=== PATIENT | male | born 1960 | race Hispanic/Latino ===

== ENCOUNTER 2019-03-16 16:03 | Emergency (ER) | payer OTHER ==
[2019-03-16 16:43] LABS: Absolute Lymphocytes (CBC) 1.7 K/uL (0.7-4.9); Basophils % 0.5 % (0-1.3); Hematocrit 33.6 % (39.6-49.0); Lymphocytes % 29.4 % (15.3-44.8); Protime INR 1.05; RBC Red Blood Cell Count 3.85 M/uL (4.33-5.43)
[2019-03-16 17:06] LABS: ALT/SGPT 26 U/L (12-78); AST/SGOT 19 U/L (15-37); Alkaline Phosphatase 48 U/L (45-117); BUN Blood Urea Nitrogen 14 mg/dL (7-18); Bicarbonate 26 mmol/L (21-32); Bilirubin Direct < 0.1 mg/dL (0-0.2); Bilirubin Total 0.2 mg/dL (0.2-1.0); CKMB Creatine Kinase MB 3.3 ng/mL (0.3-3.6); Creatine Phosphokinase 146 U/L (39-308); Glucose Level 79 mg/dL (74-106); Magnesium 2.1 mg/dL (1.8-2.4); NT PRO-BNP 144 pg/mL (<125); Potassium 3.6 mmol/L (3.5-5.1); Protein, Total 6.2 g/dL (6.4-8.2); Sodium Level 142 mmol/L (136-145); Troponin (Emerg Dept Use Only) < 0.02 ng/mL (0.0-0.045)
[2019-03-16] MEDS ORDERED: NA CHLORIDE 0.9% 1,000 ML ONE (17:06)
--- NOTE | 2019-03-16 17:12 | RAD REPORT ---
EXAM DESCRIPTION: RAD - Chest Single View - 03/16/2019 5:01 pm CLINICAL HISTORY: Cough, patient found down and unresponsive COMPARISON: August 2015 TECHNIQUE: AP portable chest image was obtained 1658 hours . FINDINGS: Lung volumes are normal. Patchy minimal opacification in the lateral right base. This coul d be atelectasis or very early pneumonia. Interstitial pattern otherwise unremarkable and similar to comparison. Trachea is midline. Heart and vasculature are normal. No measurable pleural effusion and no pneumothorax. No acute bony abnormality seen. No acute aortic findings suspected. IMPRESSION: Minimal patchy opacification lateral right base could be very early pneumonia.
--- NOTE | 2019-03-16 17:22 | ER ---
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 Transition of care: patient was not received from another setting of care. Transition of care: patient was not received from another setting of care. Onset of symptoms was March 16, 2019. Risk Assessment: Do you want to hurt yourself or someone else? Patient reports no desire to harm self or others. Initial Sepsis Screen: Does the patient meet any 2 criteria? No. Patient's initial sepsis screen is negative. Does the patient have a suspected source of infection? No. Patient's initial sepsis screen is negative. Care prior to arrival: Medication(s) given: Normal saline infusion, approx 600 mL IV initiated. 18 GA, in the right antecubital area, Glucose check: 65. 16:09 Method Of Arrival: EMS: [facility] 16:09 Acuity: RAY 3 ph Triage Assessment: 16:21 General: Appears in no apparent distress. comfortable, Behavior is calm, cooperative, ph appropriate for age, Denies fever, feeling ill. Pain: Complains of pain in left foot. Neuro: Level of Consciousness is awake, alert, obeys commands, Oriented to person, place, time, situation, Speech is normal, Facial symmetry appears normal, Reports a syncopal episode Denies blurred vision. Cardiovascular: Reports syncope, Denies chest pain, shortness of breath, Capillary refill < 3 seconds in bilateral fingers Patient's skin is warm and dry. Respiratory: Airway is patent Respiratory effort is even, unlabored, Respiratory pattern is regular, symmetrical. GI: Patient currently denies diarrhea, nausea, vomiting. Derm: Skin is intact, is healthy with good turgor, Skin is pink, warm \T\ dry. Musculoskeletal: Circulation, motion, and sensation intact. Range of motion: intact in all extremities. Historical: - Allergies: 16:17 No Known Allergies; ph - Home Meds: 16:17 None [Active]; ph - PMHx: 16:17 None; ph - PSHx: 16:17 L foot; L wrist; pelvis; ph - Immunization history:: Adult Immunizations unknown. - Social history:: Smoking status: Patient uses tobacco products, smokes one-half pack cigarettes per day, Patient/guardian denies using alcohol, street drugs. - Ebola Screening: : No symptoms or risks identified at this time. Screenin:20 Abuse screen: Denies threats or abuse. Denies injuries from another. Nutritional ph screening: No deficits noted. Tuberculosis screening: No symptoms or risk factors identified. Fall Risk Fall in past 12 months (25 points). No secondary diagnosis (0 pts). IV access (20 points). Ambulatory Aid- None/Bed Rest/Nurse Assist (0 pts). Gait- Weak (10 pts.). Mental Status- Oriented to own ability (0 pts). Total Farfan Fall Scale indicates High Risk Score (45 or more points). Fall prevention measures have been instituted. Side Rails Up X 2 Placed Close to Nursing Station Frequent Obs/Assessments Occuring Family Present and informed to notify staff if the need to leave the bedside As available patient and family educated on Fall Prevention Program and Strategies. Assessment: 16:27 General: see triage note for full assessment. ph 17:00 Reassessment: Patient appears in no apparent distress at this time. Patient and/or ph family updated on plan of care and expected duration. Pain level reassessed. Patient is alert, oriented x 3, equal unlabored respirations, skin warm/dry/pink. 18:00 Reassessment: Patient appears in no apparent distress at this time. Patient and/or ph family updated on plan of care and expected duration. Pain level reassessed. Patient is alert, oriented x 3, equal unlabored respirations, skin warm/dry/pink. D/C pending completion of IV fluids. 18:21 Reassessment: Patient appears in no apparent distress at this time. Patient and/or ph family updated on plan of care and expected duration. Pain level reassessed. Patient is alert, oriented x 3, equal unlabored respirations, skin warm/dry/pink. D/C pending completion of IV fluids Patient states feeling better. Patient states symptoms have improved. Vital Signs: 16:14 BP 136 / 69; Pulse 75; Resp 18; Temp 98.2; Pulse Ox 95% on R/A; Weight 86.18 kg; Height ph 5 ft. 11 in. (180.34 cm); 17:30 BP 124 / 70; Pulse 71; Resp 18; Pulse Ox 96% on R/A; ph 18:30 BP 127 / 78; Pulse 72; Resp 16; Temp 97.8; Pulse Ox 95% on R/A; ph 16:14 Body Mass Index 26.50 (86.18 kg, 180.34 cm) ph ED Course: 16:06 Brandt Han MD is Attending Physician. diego 16:08 Patient arrived in ED. ph 16:14 Triage completed. ph 16:20 Arm band placed on Patient placed in an exam room, on a stretcher, on pulse oximetry. ph 16:21 Patient has correct armband on for positive identification. Bed in low position. Call ph light in reach. Side rails up X2. Pulse ox on. NIBP on. Door closed. Noise minimized. Warm blanket given. Head of bed elevated. 16:23 Initial lab(s) drawn, by me, sent to lab. em1 16:30 Maintain EMS IV. Dressing intact. Good blood return noted. Site clean \T\ dry. Gauge \T\ ph site: 18G LAC. 17:04 XRAY Chest (1 view) In Process Unspecified. EDMS 17:35 Gabriela Esquivel, RN is Primary Nurse. ph 18:40 No provider procedures requiring assistance completed. IV discontinued, intact, ph bleeding controlled, No redness/swelling at site. Pressure dressing applied. Administered Medications: 16:20 Drug: NS 0.9% 1000 ml Route: IV; Rate: 1 bolus; Site: right antecubital; ph 17:36 Drug: NS 0.9% 1000 ml Route: IV; Rate: 1 bolus; Site: right antecubital; ph 18:35 Follow up: Response: No adverse reaction; IV Status: Completed infusion; IV Intake: ph 1000ml 17:56 Drug: Rocephin 1 grams Route: IV; Rate: per protocol; Site: right antecubital; ph 18:20 Follow up: Response: No adverse reaction; IV Status: Completed infusion ph 17:56 Drug: Zithromax 500 mg Route: PO; ph 18:30 Follow up: Response: No adverse reaction ph Intake: 18:35 IV: 1000ml; Total: 1000ml. ph Outcome: 17:21 Discharge ordered by . diego 18:42 Patient left the ED. ph 18:42 Discharged to home ambulatory, with family. ph 18:42 Condition: good 18:42 Discharge instructions given to patient, Instructed on discharge instructions, follow up and referral plans. medication usage, Demonstrated understanding of instructions, follow-up care, medications, Prescriptions given X 1. Signatures: Dispatcher [employer] EDMS Brandt Han MD MD cha Martinez, Gabriela Max RN RN ph Corrections: (The following items were deleted from the chart) 17:52 17:36 Rocephin 1 grams IV at per protocol in right antecubital ph ph 17:52 17:36 Zithromax 500 mg PO ph ph
--- NOTE | 2019-03-16 17:22 | EDPHYS ---
Physician Documentation [facility] Name: Gabriel Mcdermott Age: 58 yrs Sex: Male : 1960 Arrival Date: 03/16/2019 Time: 16:08 Bed 17 Private MD: ED Physician Brandt Han HPI: 03/16 17:06 This 58 yrs old Male presents to ER via EMS with complaints of Heat Exposure, diego Syncope. Historical: - Allergies: 16:17 No Known Allergies; ph - Home Meds: 16:17 None [Active]; ph - PMHx: 16:17 None; ph - PSHx: 16:17 L foot; L wrist; pelvis; ph - Immunization history:: Adult Immunizations unknown. - Social history:: Smoking status: Patient uses tobacco products, smokes one-half pack cigarettes per day, Patient/guardian denies using alcohol, street drugs. - Ebola Screening: : No symptoms or risks identified at this time. ROS: 17:13 Constitutional: Negative for fever, chills, and weight loss, Eyes: Negative for injury, diego pain, redness, and discharge, ENT: Negative for injury, pain, and discharge, Neck: Negative for injury, pain, and swelling, Respiratory: Negative for shortness of breath, cough, wheezing, and pleuritic chest pain, Abdomen/GI: Negative for abdominal pain, nausea, vomiting, diarrhea, and constipation, Back: Negative for injury and pain, : Negative for injury, bleeding, discharge, and swelling, MS/Extremity: Negative for injury and deformity, Skin: Negative for injury, rash, and discoloration, Neuro: Negative for headache, weakness, numbness, tingling, and seizure, Psych: Negative for depression, anxiety, suicide ideation, homicidal ideation, and hallucinations, Allergy/Immunology: Negative for hives, rash, and allergies, Endocrine: Negative for neck swelling, polydipsia, polyuria, polyphagia, and marked weight changes, Hematologic/Lymphatic: Negative for swollen nodes, abnormal bleeding, and unusual bruising. 17:13 Cardiovascular: Positive for palpitations. 17:13 Neuro: Positive for near syncope. Exam: 17:13 Constitutional: This is a well developed, well nourished patient who is awake, alert, diego and in no acute distress. Head/Face: Normocephalic, atraumatic. Eyes: Pupils equal round and reactive to light, extra-ocular motions intact. Lids and lashes normal. Conjunctiva and sclera are non-icteric and not injected. Cornea within normal limits. Periorbital areas with no swelling, redness, or edema. ENT: Nares patent. No nasal discharge, no septal abnormalities noted. Tympanic membranes are normal and external auditory canals are clear. Oropharynx with no redness, swelling, or masses, exudates, or evidence of obstruction, uvula midline. Mucous membranes moist. Neck: Trachea midline, no thyromegaly or masses palpated, and no cervical lymphadenopathy. Supple, full range of motion without nuchal rigidity, or vertebral point tenderness. No Meningismus. Chest/axilla: Normal chest wall appearance and motion. Nontender with no deformity. No lesions are appreciated. Cardiovascular: Regular rate and rhythm with a normal S1 and S2. No gallops, murmurs, or rubs. Normal PMI, no JVD. No pulse deficits. Respiratory: Lungs have equal breath sounds bilaterally, clear to auscultation and percussion. No rales, rhonchi or wheezes noted. No increased work of breathing, no retractions or nasal flaring. Abdomen/GI: Soft, non-tender, with normal bowel sounds. No distension or tympany. No guarding or rebound. No evidence of tenderness throughout. Back: No spinal tenderness. No costovertebral tenderness. Full range of motion. Male : Normal genitalia with no discharge or lesions. Skin: Warm, dry with normal turgor. Normal color with no rashes, no lesions, and no evidence of cellulitis. MS/ Extremity: Pulses equal, no cyanosis. Neurovascular intact. Full, normal range of motion. Neuro: Awake and alert, GCS 15, oriented to person, place, time, and situation. Cranial nerves II-XII grossly intact. Motor strength 5/5 in all extremities. Sensory grossly intact. Cerebellar exam normal. Normal gait. Psych: Awake, alert, with orientation to person, place and time. Behavior, mood, and affect are within normal limits. Vital Signs: 16:14 BP 136 / 69; Pulse 75; Resp 18; Temp 98.2; Pulse Ox 95% on R/A; Weight 86.18 kg; Height ph 5 ft. 11 in. (180.34 cm); 17:30 BP 124 / 70; Pulse 71; Resp 18; Pulse Ox 96% on R/A; ph 18:30 BP 127 / 78; Pulse 72; Resp 16; Temp 97.8; Pulse Ox 95% on R/A; ph 16:14 Body Mass Index 26.50 (86.18 kg, 180.34 cm) ph MDM: 16:06 Patient medically screened. [facility] 17:15 Data reviewed: vital signs, nurses notes, lab test result(s), EKG, radiologic studies, diego plain films. 03/16 16:11 Order name: Basic Metabolic Panel; Complete Time: 17:19 [facility] 03/16 16:11 Order name: CBC with Diff; Complete Time: 17:09 [facility] 03/16 16:11 Order name: LFT's; Complete Time: 17:19 [facility] 03/16 16:11 Order name: Magnesium; Complete Time: 17:19 [facility] 03/16 16:11 Order name: NT PRO-BNP; Complete Time: 17:19 [facility] 03/16 16:11 Order name: PT-INR; Complete Time: 17:09 [facility] 03/16 16:11 Order name: Troponin (emerg Dept Use Only); Complete Time: 17:19 [facility] 03/16 16:11 Order name: XRAY Chest (1 view); Complete Time: 17:19 [facility] 03/16 16:11 Order name: Ckmb; Complete Time: 17:19 [facility] 03/16 16:11 Order name: CK; Complete Time: 17:19 [facility] 03/16 17:19 Order name: Blood Culture Adult (2) [facility] 03/16 16:11 Order name: EKG; Complete Time: 16:16 [facility] 03/16 16:11 Order name: Cardiac monitoring; Complete Time: 16:29 [facility] 03/16 16:11 Order name: EKG - Nurse/Tech [facility] 03/16 16:11 Order name: IV Saline Lock; Complete Time: 16:29 [facility] 03/16 16:11 Order name: Labs collected and sent; Complete Time: 16:25 [facility] 03/16 16:11 Order name: O2 Per Protocol; Complete Time: 16:29 [facility] 03/16 16:11 Order name: O2 Sat Monitoring; Complete Time: 16:29 [facility] 03/16 17:23 Order name: PO challenge: ICE WATER; Complete Time: 20:12 diego Administered Medications: 16:20 Drug: NS 0.9% 1000 ml Route: IV; Rate: 1 bolus; Site: right antecubital; ph 17:36 Drug: NS 0.9% 1000 ml Route: IV; Rate: 1 bolus; Site: right antecubital; ph 18:35 Follow up: Response: No adverse reaction; IV Status: Completed infusion; IV Intake: ph 1000ml 17:56 Drug: Rocephin 1 grams Route: IV; Rate: per protocol; Site: right antecubital; ph 18:20 Follow up: Response: No adverse reaction; IV Status: Completed infusion ph 17:56 Drug: Zithromax 500 mg Route: PO; ph 18:30 Follow up: Response: No adverse reaction ph Disposition: 03/16/19 17:21 Discharged to Home. Impression: Heat exhaustion, unspecified, Pneumonia due to other specified bacteria. - Condition is Stable. - Discharge Instructions: Dehydration, Adult, Community-Acquired Pneumonia, Adult, Community-Acquired Pneumonia, Adult, [id number], Heat Exhaustion Information, Dehydration, Adult, [id number]. - Prescriptions for Zithromax 500 mg Oral Tablet - take 1 tablet by ORAL route once daily for 5 days; 5 tablet. - Medication Reconciliation Form, Thank You Letter, Antibiotic Education, Prescription Opioid Use form. - Follow up: Private Physician; When: 2 - 3 days; Reason: Recheck today's complaints, Continuance of care, Re-evaluation by your physician. - Problem is new. - Symptoms have improved. Signatures: Dispatcher [employer] EDOH Brandt Han MD MD cha Hall, Patricia RN RN ph Corrections: (The following items were deleted from the chart) 18:42 17:21 03/16/2019 17:21 Discharged to Home. Impression: Heat exhaustion, unspecified; ph Pneumonia due to other specified bacteria. Condition is Stable. Forms are Medication Reconciliation Form, Thank You Letter, Antibiotic Education, Prescription Opioid Use. Follow up: Private Physician; When: 2 - 3 days; Reason: Recheck today's complaints, Continuance of care, Re-evaluation by your physician. Problem is new. Symptoms have improved. diego
[2019-03-16] MEDS ORDERED: AZITHROMYCIN 250 MG TAB ONE (17:43)
[2019-03-16] MEDS ORDERED: CEFTRIAXONE/SWI 1gm 1 GM/10 ML SYR ONE (17:43)
--- NOTE | 2019-03-17 07:11 | EKG ---
Test Date: 2019-03-16 Test Time: 16:56:33 Family Law Mediator: SHERRY MEASUREMENT RESULTS: Intervals: Rate: 65 CT: 174 QRSD: 100 QT: 436 QTc: 453 [place]: P: 53 CT: 174 QRS: 59 T: 37 INTERPRETIVE STATEMENTS: Normal sinus rhythm Normal ECG Compared to ECG 08/19/2015 22:51:30 Sinus tachycardia no longer present Electronically Signed On 03-17-19 07:10:51 CDT by Chinmay Snow
== END 2019-03-16 18:42 | disposition home or self-care (01) ==
LOC: ER 16:03
DX: J15.8 Pneumonia due to other specified bacteria (principal); T67.5XXA Heat exhaustion, unspecified, initial encounter; F17.210 Nicotine dependence, cigarettes, uncomplicated
CPT/HCPCS: 96365; 96361; 93005; 87040 ×2; 85025; 80048; 36415; 83735; 82550; 85610; 80076; 84484; 82553; 83880; 71045; 99284; J0696; J7030

== ENCOUNTER 2022-12-30 04:51 | Emergency (ER) | payer OTHER ==
[2022-12-30] MEDS ORDERED: NA CHLORIDE 0.9% 500 ML ONE (05:11)
[2022-12-30] MEDS ORDERED: ONDANSETRON 4 MG/2 ML VIAL ONE (05:11)
[2022-12-30] MEDS ORDERED: MORPHINE 4 MG/ML SYR ONE (05:11)
[2022-12-30 05:23] LABS: Absolute Lymphocytes (CBC) 1.8 K/uL (0.7-4.9); Hematocrit 48.9 % (39.6-49.0); Lymphocytes % 23.3 % (15.3-44.8); MCV 90.6 fL (80-100); MPV 8.8 fL (7.6-11.3); RBC Red Blood Cell Count 5.39 M/uL (4.33-5.43)
[2022-12-30 05:48] LABS: Albumin 3.5 g/dL (3.4-5.0); Bilirubin Total 0.3 mg/dL (0.2-1.0); Potassium 4.9 mEq/L (3.5-5.1); Protein, Total 8.2 g/dL (6.4-8.2)
[2022-12-30] MEDS ORDERED: AMLODIPINE 10 MG TAB ONE (07:37)
--- NOTE | 2022-12-30 08:00 | RAD REPORT ---
EXAM DESCRIPTION: CT - Abdomen Pelvis W Contrast - 12/30/2022 6:29 am CLINICAL HISTORY: eval obstruction aroud hernia COMPARISON: No comparisons TECHNIQUE: Thin cut axial CT imaging of the abdomen and pelvis was performed following intravenous a dministration of 95 mL Isovue 300. Multiplanar reformats were generated and reviewed. All CT scans are performed using dose optimization technique as appropriate and may include automated exposure control or mA/KV adjustment according to patient size. FINDINGS: No suspicious findings in the lung bases. The liver, spleen, adrenal glands, and pancreas show no suspicious findings. Gallbladder and biliary tree are also without suspicious finding. Symmetric renal function is seen with no hydronephrosis or suspicious renal mass. No dilated bowel loops. Mild rectal wall thickening, could be related to nondistention or nonspecific proctitis. Moderate stool burden throughout the colon. No free air, free fluid or inflammatory stran ding. No hernia, mass or bulky lymphadenopathy. The urinary bladder is without significant finding. No acute osseous findings. Malunited left pelvic fractures. Penile implant in place, with some calcifications along the implant tubes and the collapsed bump pres erved for. IMPRESSION: Mild rectal wall thickening, could be related to nondistention or nonspecific mild proct itis. Other incidental findings as above.
--- NOTE | 2022-12-30 08:08 | ER ---
Nurse's Notes [facility] Name: Gabriel Mcdermott Age: 62 yrs Sex: Male : 1960 Arrival Date: 12/30/2022 Time: 04:51 Bed 5 Private MD: Diagnosis: Ventral hernia without obstruction or gangrene;Essential (primary) hypertension Presentation: 12/30 05:03 Chief complaint: Patient states: I have a bump on my stomach and a lot of pain. I have kd3 been having some nausea and vomiting. The bump has been there for a couple of days. Coronavirus screen: Vaccine status: Patient reports being unvaccinated. Ebola Screen: No symptoms or risks identified at this time. Initial Sepsis Screen: Does the patient meet any 2 criteria? No. Patient's initial sepsis screen is negative. Does the patient have a suspected source of infection? No. Patient's initial sepsis screen is negative. Risk Assessment: Do you want to hurt yourself or someone else? Patient reports no desire to harm self or others. Onset of symptoms was December 30, 2022. 05:03 Method Of Arrival: Ambulatory kd3 05:03 Acuity: RAY 3 kd3 Triage Assessment: 05:05 General: Appears unkempt, Behavior is calm, cooperative. Pain: Complains of pain in kd3 epigastric area. GI: Abdomen is Hernia, upper abdomen. Historical: - Allergies: 05:05 No Known Allergies; kd3 - Home Meds: 05:05 None [Active]; kd3 - PMHx: 05:05 None; kd3 - Immunization history:: Adult Immunizations up to date. - Social history:: Smoking status: Patient reports the use of cigarette tobacco products, smokes one-half pack cigarettes per day. Screenin:17 [facility] ED Fall Risk Assessment (Adult) History of falling in the last 3 months, rv including since admission No falls in past 3 months (0 pts). Abuse screen: Denies threats or abuse. Denies injuries from another. Nutritional screening: No deficits noted. Tuberculosis screening: No symptoms or risk factors identified. Assessment: 05:15 General: Appears uncomfortable, Behavior is calm, cooperative. Pain: Complains of pain rv in epigastric area Pain currently is 10 out of 10 on a pain scale. Neuro: Level of Consciousness is awake, alert, obeys commands, Oriented to person, place, time, situation. Cardiovascular: Denies chest pain, Capillary refill < 3 seconds. Respiratory: Airway is patent Breath sounds are clear bilaterally. GI: Bowel sounds present X 4 quads. Mass noted in epigastric area. : No signs and/or symptoms were reported regarding the genitourinary system. 06:00 Reassessment: No changes from previously documented assessment. Patient and/or family vc1 updated on plan of care and expected duration. Pain level reassessed. Patient is alert, oriented x 3, equal unlabored respirations, skin warm/dry/pink. 06:32 Reassessment: No changes from previously documented assessment. Patient and/or family vc1 updated on plan of care and expected duration. Pain level reassessed. Patient is alert, oriented x 3, equal unlabored respirations, skin warm/dry/pink. Patient states feeling better. Patient states symptoms have improved. 07:15 General: Appears in no apparent distress. comfortable, Behavior is calm, cooperative, jl7 appropriate for age. Pain: Denies pain. Neuro: Level of Consciousness is awake, alert, obeys commands, Oriented to person, place, time, situation. Cardiovascular: Denies chest pain, Patient's skin is warm and dry. Respiratory: Airway is patent Respiratory effort is even, unlabored, Respiratory pattern is regular, symmetrical. GI: Abdomen is flat, non-distended, Bowel sounds present X 4 quads. Abd is soft and non tender Mass noted in epigastric area. Derm: Skin is pink, warm \T\ dry. 07:36 Reassessment: Dr. Marmolejo notified of elevated BP, pt reports he does not take jl7 anything for BP, ERD gave VO for 10 mg Norvasc PO x1, pt medicated as ordered. Vital Signs: 05:03 Pulse 71; Resp 20; Temp 98.2(O); Pulse Ox 98% on R/A; Weight 77.11 kg; Height 5 ft. 11 kd3 in. ; 05:08 BP 174 / 105; vc1 05:29 BP 161 / 80; Pulse 75; Pulse Ox 94% on R/A; vc1 06:00 BP 158 / 88; Pulse 79; Resp 20; Pulse Ox 88% on R/A; vc1 06:01 Pulse Ox 96% on 2 lpm NC; vc1 07:20 BP 191 / 122; Pulse 73; Resp 15; Pulse Ox 96% ; Pain 0/10; jl7 08:18 BP 167 / 114; Pulse 72; Resp 18; Pulse Ox 97% on R/A; ko1 05:03 Body Mass Index 23.71 (77.11 kg, 180.34 cm) kd3 07:20 Pain Scale: Adult jl7 ED Course: 04:55 Patient arrived in ED. mr 04:55 Jordi Falk MD is Attending Physician. bs3 05:05 Triage completed. kd3 05:05 Arm band placed on left wrist. kd3 05:52 XRAY Chest (1 view) In Process Unspecified. EDMS 06:30 CT Abd/Pelvis - IV Contrast Only In Process Unspecified. EDMS 06:56 Yue Dukes, IVAN is Primary Nurse. vc1 07:01 Inserted saline lock: 20 gauge in right antecubital area, using aseptic technique. vc1 07:15 Patient has correct armband on for positive identification. Bed in low position. Call jl7 light in reach. Side rails up X 1. Pulse ox on. NIBP on. 07:30 Attending Physician role handed off by Jordi Falk MD rt 07:30 Alex Marmolejo MD is Attending Physician. rt 08:07 Sebas Mansfield MD is Referral Physician. rt 08:18 No provider procedures requiring assistance completed. IV discontinued, intact, ko1 bleeding controlled, No redness/swelling at site. Pressure dressing applied. Administered Medications: 05:07 Drug: NS 0.9% IV 500 ml Route: IV; Rate: 1 bolus; Site: right antecubital; ll3 05:08 Drug: Ondansetron IVP 4 mg Route: IVP; Site: right antecubital; ll3 05:09 Drug: morphine IVP or IV 4 mg Route: IVP; Infused Over: 4 mins; Site: right antecubital;ll3 07:33 Drug: amLODIPine PO 10 mg Route: PO; jl7 08:20 Follow up: Response: No adverse reaction; Blood pressure is lowered ko1 Medication: 07:36 VIS not applicable for this client. jl7 Outcome: 08:07 Discharge ordered by . rt 08:18 Discharged to home ambulatory, with family. ko1 08:18 Condition: improved 08:18 Discharge instructions given to patient, family, Instructed on discharge instructions, follow up and referral plans. medication usage, Demonstrated understanding of instructions, follow-up care, medications, Prescriptions given X 1. 08:20 Patient left the ED. ko1 Signatures: Dispatcher [employer] EDMO Liliana Ferrer, Jair, RN RN jl7 Song Grant, RN RN rv Prasanth Waite, RN RN ll3 Arielle Guillen, RN RN kd3 Yue Dukes RN RN vc1 Jordi Falk MD MD bs3 Virginia Wang RN RN ko1 Alex Marmolejo MD MD rt
--- NOTE | 2022-12-30 08:08 | EDPHYS ---
Physician Documentation [facility] Name: Gabriel Mcdermott Age: 62 yrs Sex: Male : 1960 Arrival Date: 12/30/2022 Time: 04:51 Bed 5 Private MD: ED Physician Alex Marmolejo HPI: 12/30 05:02 This 62 yrs old Male presents to ER via Unassigned with complaints of bs3 Abdominal Pain, Vomiting. 05:02 62-year-old male history of traumatic injuries requiring surgery back in the 80s when bs3 he fell from greater than 20 feet otherwise reports no past medical history however does smoke almost a pack a day presents with several weeks of a ball that he feels just above his umbilicus however today he he had increased pain and it seems to be sticking out he also endorses nausea and vomiting he does state that he had a bowel movement earlier today but states that he is not passing gas. Historical: - Allergies: 05:05 No Known Allergies; kd3 - Home Meds: 05:05 None [Active]; kd3 - PMHx: 05:05 None; kd3 - Immunization history:: Adult Immunizations up to date. - Social history:: Smoking status: Patient reports the use of cigarette tobacco products, smokes one-half pack cigarettes per day. ROS: 05:02 Constitutional: Negative for fever, chills bs3 05:02 All other systems are negative. Exam: 05:02 Constitutional: This is a well developed, well nourished patient who is awake, alert, bs3 and in no acute distress. Head/Face: Normocephalic, atraumatic. Eyes: Pupils equal round and reactive to light, extra-ocular motions intact. Lids and lashes normal. Neck: Trachea midline, no thyromegaly, no neck stiffness Chest/axilla: Normal chest wall appearance and motion. Nontender with no deformity. No lesions are appreciated. Cardiovascular: Regular rate and rhythm with a normal S1 and S2. symmetric pulses in upper extremities Respiratory: Lungs have equal breath sounds bilaterally, clear to auscultation, no respiratory distress Abdomen/GI: there is a ventral hernia in the epigastric region, tender to palpation, no discoloration. MS/ Extremity: Pulses equal, no cyanosis. Neurovascular intact. Full, normal range of motion. Neuro: Awake and alert, GCS 15, oriented to person, place, time, and situation. Cranial nerves II-XII grossly intact. Motor strength 5/5 in all extremities. Sensory grossly intact. Psych: Awake, alert, with orientation to person, place and time. Behavior, mood, and affect are within normal limits. Vital Signs: 05:03 Pulse 71; Resp 20; Temp 98.2(O); Pulse Ox 98% on R/A; Weight 77.11 kg; Height 5 ft. 11 kd3 in. ; 05:08 BP 174 / 105; vc1 05:29 BP 161 / 80; Pulse 75; Pulse Ox 94% on R/A; vc1 06:00 BP 158 / 88; Pulse 79; Resp 20; Pulse Ox 88% on R/A; vc1 06:01 Pulse Ox 96% on 2 lpm NC; vc1 07:20 BP 191 / 122; Pulse 73; Resp 15; Pulse Ox 96% ; Pain 0/10; jl7 08:18 BP 167 / 114; Pulse 72; Resp 18; Pulse Ox 97% on R/A; ko1 05:03 Body Mass Index 23.71 (77.11 kg, 180.34 cm) kd3 07:20 Pain Scale: Adult jl7 MDM: 04:55 Patient medically screened. bs3 05:02 Data reviewed: vital signs, nurses notes. ED course: likely epigastric hernia, given no bs3 flatus and vomiting and pt reporting it newly out (normally flat) I have a concern for obstruction, will tx pain and attempt manual reduction, will do ct to further evaluate, will reassess. 05:26 ED course: after IV pain medicine, firm manual pressure was applied directly to the bs3 hernia site and it was reduced successfully, will image to evaluate for any retained bowel, pt advised to f/u with surgery. . 06:10 ED course: pt coughing here although no complaints of sob, given hx of pulm nodule, bs3 will do xray, xray concering for right lung pulm nodule as inter by myself. Advised outpatient pcp f/u. 08:08 Differential diagnosis: Reducible hernia, strangulated hernia, incarcerated hernia. I rt considered the following discharge prescriptions or medication management in the emergency department Medications were administered in the Emergency Department. See MAR. Counseling: I had a detailed discussion with the patient and/or guardian regarding: the historical points, exam findings, and any diagnostic results supporting the discharge/admit diagnosis, the presence of at least one elevated blood pressure reading (>120/80) during this emergency department visit, lab results, radiology results, the need for outpatient follow up. 12/30 05:02 Order name: CBC with Diff; Complete Time: 05:34 bs3 12/30 05:02 Order name: Comprehensive Metabolic Panel; Complete Time: 06:06 3 12/30 05:02 Order name: CT Abd/Pelvis - IV Contrast Only; Complete Time: 08:08 bs3 12/30 05:34 Order name: XRAY Chest (1 view) bs3 Administered Medications: 05:07 Drug: NS 0.9% IV 500 ml Route: IV; Rate: 1 bolus; Site: right antecubital; ll3 05:08 Drug: Ondansetron IVP 4 mg Route: IVP; Site: right antecubital; ll3 05:09 Drug: morphine IVP or IV 4 mg Route: IVP; Infused Over: 4 mins; Site: right antecubital;ll3 07:33 Drug: amLODIPine PO 10 mg Route: PO; jl7 08:20 Follow up: Response: No adverse reaction; Blood pressure is lowered ko1 Disposition Summary: 12/30/22 08:07 Discharge Ordered Location: Home rt Problem: new rt Symptoms: have improved rt Condition: Stable rt Diagnosis - Ventral hernia without obstruction or gangrene rt - Essential (primary) hypertension rt Followup: bs3 - With: Private Physician - When: 2 - 3 days - Reason: Re-evaluation by your physician Followup: bs3 - With: - When: 2 - 3 days - Reason: Recheck today's complaints Discharge Instructions: - Discharge Summary Sheet bs3 - Hernia, Adult, [id number] bs3 - Hernia, Adult rt - Hypertension, Adult rt Forms: - Medication Reconciliation Form rt - Thank You Letter rt - Antibiotic Education rt - Prescription Opioid Use rt Prescriptions: - Norvasc 5 mg Oral Tablet - take 1 tablet by ORAL route once daily; 30 tablet; Refills: 0, Product rt Selection Permitted Signatures: Dispatcher [employer] Jair Alberto RN RN jl7 Prasanth Waite RN RN ll3 Arielle Guillen RN RN kd3 Jordi Falk MD MD bs3 Alex Marmolejo MD MD rt Virginia Wang RN ko1
[2022-12-30 08:36] VITALS: TEMP 98.2
[2022-12-30 08:53] VITALS: BP 167/114; O2SAT 97
--- NOTE | 2022-12-31 10:24 | RAD REPORT ---
[facility]50 [facility] CLINICAL HISTORY: COUGH COMPARISON: Chest Single View dated 03/16/2019; CHEST SINGLE VIEW dated 08/19/2015 TECHNIQUE: Portable AP view of the chest. FINDINGS: The lungs are clear. No pneumothorax or effusion. The cardiomediastinal contours are unrem arkable. IMPRESSION: No acute cardiopulmonary process.
== END 2022-12-30 08:20 | disposition home or self-care (01) ==
LOC: ER 04:51
DX: K43.9 Ventral hernia without obstruction or gangrene (principal); I10 Essential (primary) hypertension; F17.210 Nicotine dependence, cigarettes, uncomplicated
CPT/HCPCS: 85025; 36415; 80053; 74177; 71045; Q9967; J2405; J7040